=== PATIENT | female | born 1940 | race Caucasian/White ===

== ENCOUNTER 2022-04-07 14:42 | Emergency (ER) | payer MEDICARE, SELFPAY ==
[~2022-04-07] VITALS: Ht 158.8 cm; Wt 68.2 kg
[2022-04-07 14:43] VITALS: BP 146/70
== END 2022-04-07 15:51 | disposition left against medical advice (07) ==
LOC: M ED 14:42
DX: Z53.21 Procedure and treatment not carried out due to patient leaving prior to being seen by health care provider (principal)

== ENCOUNTER → 2022-04-07 | Outpatient (CLI) | payer MEDICARE, OTHER | LOC: M RAD 16:58 | PROVIDERS: ATTEND Physician Assistant | DX: S50.01XA Contusion of right elbow, initial encounter (principal); S60.211A Contusion of right wrist, initial encounter; X58.XXXA Exposure to other specified factors, initial encounter; Y92.9 Unspecified place or not applicable; Y93.9 Activity, unspecified; Y99.9 Unspecified external cause status; S52.611A Displaced fracture of right ulna styloid process, initial encounter for closed fracture; S52.501A Unspecified fracture of the lower end of right radius, initial encounter for closed fracture ==